=== PATIENT | female | born 1995 | race Caucasian/White ===

== ENCOUNTER 2017-09-14 16:47 | Emergency (ER) | payer SELFPAY ==
[2017-09-14 17:07] VITALS: BP 133/75
--- NOTE | 2017-09-14 17:22 | UC ---
Upper Extremity HPI - HPI Summary HPI Summary: This pt is a 22 y/o female presenting to [facility] c/o right third finger pain s/p injury 2 days ago. Pt reports 2 days ago she slammed her right middle finger in a door. Since then she has had pain on her finger, described as "pressure" on her nail. She presents today with swelling and pain of her finger. Denies fever , chills, weakness, numbness. Denies any PMHx. - History of Current Complaint Chief Complaint: UCUpperExtremity Stated Complaint: FINGER INJURY Time Seen by Provider: 09/14/17 17:17 Hx Obtained From: Patient Onset/Duration: Lasting Days, Still Present Severity Currently: Moderate Pain Intensity: 7 Pain Scale Used: 0-10 Numeric Location Of Pain: Is Discrete @ - right third finger Character: Throbbing - pressure Aggravating Factor(s): Nothing Alleviating Factor(s): Nothing Associated Signs And Symptoms: Positive: Swelling, Bruising. Negative: Fever, Weakness, Numbness/Tingling - Allergies/Home Medications Allergies/Adverse Reactions: Allergies Allergy/AdvReac Type Severity Reaction Status Date / Time No Known Allergies Allergy Verified 09/14/17 17:08 PMH/Surg Hx/FS Hx/Imm Hx Other Endocrine History: anemia Other Cardiovascular History: DENIES: HTN - Surgical History Surgical History: None - Family History Known Family History: Negative: Cardiac Disease, Hypertension, Diabetes - Social History Alcohol Use: Weekly Substance Use Type: None Smoking Status (MU): Never Smoked Tobacco Review of Systems Constitutional: Negative Skin: Negative Eyes: Negative ENT: Negative Respiratory: Negative Cardiovascular: Negative Gastrointestinal: Negative Genitourinary: Negative Motor: Negative Neurovascular: Negative Musculoskeletal: Other: - POS: right third finger pain Neurological: Negative Psychological: Negative All Other Systems Reviewed And Are Negative: Yes Physical Exam - Summary Physical Exam Summary: VITAL SIGNS: Reviewed. GENERAL: Patient is a well-developed and nourished female who is lying comfortable in the stretcher. Patient is not in any acute respiratory distress. HEAD AND FACE: Normocephalic EYES: PERRLA, EOMI x 2. EARS: Hearing grossly intact. MOUTH: Oropharynx within normal limits. NECK: Supple, trachea is midline, no adenopathy, no JVD, no carotid bruit. CHEST: Symmetric, no tenderness at palpation LUNGS: Clear to auscultation bilaterally. No wheezing or crackles. CVS: Regular rate and rhythm, S1 and S2 present, no murmurs or gallops appreciated. ABDOMEN: Soft, non-tender. Bowel sounds are normal. No abdominal abnormal pulsations. EXTREMITIES: Full ROM in all major joints, no edema, no cyanosis or clubbing. RUE: paronychia with some tenderness and swelling on the distal phalanx of right third finger. NEURO: Alert and oriented x 3. No acute neurological deficits. Speech is normal and follows commands. SKIN: Dry and warm Triage Information Reviewed: Yes Vital Signs: Initial Vital Signs Temp 98.6 F 09/14/17 17:03 Pulse 82 09/14/17 17:03 Resp 16 09/14/17 17:03 BP 133/75 09/14/17 17:03 Pulse Ox 99 09/14/17 17:03 Vital Signs Reviewed: Yes Diagnostics - Radiology Right third finger XR Xray Interpretation: No Acute Changes - IMPRESSION: No evidence for fracture. Dr. Davidson has reviewed this radiology report. Radiology Interpretation Completed By: Radiologist Upper Extremity Course/Dx - Course Course Of Treatment: Pt is a 22 y/o female presenting to [facility] c/o right third finger pain s/p injury 2 days ago. Pt reports 2 days ago she slammed her right middle finger in a door. Since then she has had pain on her finger, described as "pressure" on her nail. She presents today with swelling and pain of her finger. Denies fever, chills, weakness, numbness. Denies any PMHx. In the UC course the pt was given ibuprofen. Right middle finger XR shows no evidence for fracture. I performed a digital block on right middle finger using lidocaine. Some pus was drained from the nail. She will be discharged home with a prescription for Keflex. Pt was instructed to return to the urgent care or go to ER immediately if her symptoms worsen. Plan of care was discussed with the patient and pt understands and agrees. There were no further complaints or concerns. Pt will be discharged to home with follow up from PCP. Pt is hemodynamically stable, alert and oriented x3. The patient was found to have increased blood pressure in UC. The patient will follow up with PCP for better control of BP. - Differential Dx/Diagnosis Provider Diagnoses: Paronychia Discharge - Sign-Out/Discharge Documenting (check all that apply): Patient Departure - Discharge - Discharge Plan Condition: Stable Disposition: HOME Prescriptions: Cephalexin CAP* [Keflex CAP*] 500 mg PO QID #40 cap Patient Education Materials: Ludmila (ED) Referrals: [facility] [Outside] Additional Instructions: FOLLOW UP WITH YOUR PRIMARY CARE PROVIDER WITHIN ONE WEEK FOR HIGH BLOOD PRESSURE NOTED TODAY. RETURN TO URGENT CARE OR THE ED FOR ANY WORSENING OR NEW SYMPTOMS.
[2017-09-14] MEDS ORDERED: Lidocaine 2.5%/Prilocain 2.5%* 5 GM TUBE TOPICAL ONE (17:29)
[2017-09-14] MEDS ORDERED: Ibuprofen TAB* 400 MG PO ONE (17:44)
--- NOTE | 2017-09-14 17:50 | RAD ---
INDICATION: Right middle finger injury. TECHNIQUE: 3 views of the right middle finger were obtained. FINDINGS: The bones are normal alignment. No fracture is seen. Joint spaces appear maintained. IMPRESSION: NO EVIDENCE FOR FRACTURE.
[2017-09-14] MEDS ORDERED: Lidocaine 2% PF * 5 ML VIAL INJ ONE (17:51)
--- NOTE | 2017-09-18 18:36 | UC ---
- Progress Note Progress Note: MRSA neg on cephalexin await culture no change maliha 09/18/17 Discharge - Sign-Out/Discharge Documenting (check all that apply): Post-Discharge Follow Up - Discharge Plan Condition: Stable Disposition: HOME Prescriptions: Cephalexin CAP* [Keflex CAP*] 500 mg PO QID #40 cap Patient Education Materials: Paronychia (ED) Referrals: [facility] [Outside] Additional Instructions: FOLLOW UP WITH YOUR PRIMARY CARE PROVIDER WITHIN ONE WEEK FOR HIGH BLOOD PRESSURE NOTED TODAY. RETURN TO URGENT CARE OR THE ED FOR ANY WORSENING OR NEW SYMPTOMS. - Billing Disposition and Condition Condition: STABLE Disposition: Home
== END 2017-09-14 18:20 | disposition home or self-care (01) ==
LOC: UCEAST 16:47
DX: L03.011 Cellulitis of right finger (principal)
CPT/HCPCS: 73140; 87070; 87077; 87205; 87640; 87641; 99202; A9270-GY; G0463